=== PATIENT | female | born 1940 | race Caucasian/White ===

== ENCOUNTER 2019-11-02 18:04 | Emergency (ER) | payer MEDICARE, BC ==
[~2019-11-02] VITALS: Ht 172.7 cm; Wt 80.7 kg
[2019-11-02] MEDS ORDERED: TOPROL XL100 MG PO (18:23)
[2019-11-02] MEDS ORDERED: ELIQUIS5 MG PO (18:23)
[2019-11-02] MEDS ORDERED: ARIMIDEX1 MG PO (18:23)
[2019-11-02] MEDS ORDERED: PROTONIX 20 MG20 MG PO (18:23)
[2019-11-02] MEDS ORDERED: DULOXETINE HCL20 MG PO (18:24)
[2019-11-02] MEDS ORDERED: OSTERA TABLET1 EAC1 PO (18:24)
[2019-11-02] MEDS ORDERED: DOXYCYCLINE 10100 MG PO (19:45)
[2019-11-02 20:05] VITALS: BP 172/55
[2019-11-02] MEDS ORDERED: NORCO 5-325 TA1 EAC2 PO (20:06)
== END 2019-11-02 20:05 | disposition home or self-care (01) ==
LOC: M.ERS 18:04
DX: S61.314A Laceration without foreign body of right ring finger with damage to nail, initial encounter (principal); I48.91 Unspecified atrial fibrillation; E11.9 Type 2 diabetes mellitus without complications; J45.909 Unspecified asthma, uncomplicated; Z88.8 Allergy status to other drugs, medicaments and biological substances; W26.8XXA Contact with other sharp object(s), not elsewhere classified, initial encounter; Y93.89 Activity, other specified; Y92.89 Other specified places as the place of occurrence of the external cause; Y99.8 Other external cause status

== ENCOUNTER 2021-02-08 11:38 | Emergency (ER) | payer MEDICARE, BC ==
[~2021-02-08] VITALS: Ht 172.7 cm; Wt 78.0 kg
[~2021-02-08 11:38] MED LIST: ARIMIDEX1 MG PO; DOXYCYCLINE 10100 MG PO; DULOXETINE HCL20 MG PO; ELIQUIS5 MG PO; NORCO 5-325 TA1 EAC2 PO; OSTERA TABLET1 EAC1 PO; PROTONIX 20 MG20 MG PO; TOPROL XL100 MG PO
[2021-02-08 11:40] VITALS: BP 125/68
[2021-02-08] MEDS ORDERED: NORVASC5 MG PO (11:50)
[2021-02-08] MEDS ORDERED: LANTUS SOL100 UNIT/1 SUBQ (11:50)
[2021-02-08] MEDS ORDERED: VALSARTAN320 MG PO (11:50)
== END 2021-02-08 13:00 | disposition left against medical advice (07) ==
LOC: M.ERS 11:38
DX: R53.1 Weakness (principal); Z53.21 Procedure and treatment not carried out due to patient leaving prior to being seen by health care provider